=== PATIENT | female | born 1975 | race Caucasian/White ===

== ENCOUNTER 2017-05-01 14:52 | Emergency (ER) | payer BC, OTHER ==
--- NOTE | 2017-05-01 17:07 | ED Physician Documentation ---
PD HPI LOWER EXT INJURY - Stated complaint Stated Complaint: R FOOT INJ - Chief complaint Chief Complaint: Ext Problem - History obtained from History obtained from: Patient - History of Present Illness PD HPI LOW EXT INJURY LOCATION: Right, Foot Type of injury: Twist (she was doing yoga and had a forceful overflexion of the great toes, with her weight pushing onto it. She felt a sudden pain proximal to the great toe MTP. No obvious deformity.) Where injury occurred: Home Timing - onset: Today (just [employer]) Timing - details: Abrupt onset, Still present Worsened by: Moving, Palpating Associated symptoms: Weakness (she feels toe movement of great toe feels a bit weaker.). No: Numbness, Tingling, Discolored Contributing factors: No: Prior ortho surgery Review of Systems Skin: denies: Abrasion (s), Laceration (s) Musculoskeletal: reports: Extremity pain Neurologic: denies: Numbness PD PAST MEDICAL HISTORY - Past Medical History Cardiovascular: None Psych: None Musculoskeletal: None - Present Medications Home Medications: Ambulatory Orders Medication Instructions Recorded Confirmed No Known Home Medications [No 05/01/17 05/01/17 Known Home Medications] - Allergies Allergies/Adverse Reactions: Allergies Allergy/AdvReac Type Severity Reaction Status Date / Time No Known Drug Allergies Allergy Verified 05/01/17 15:07 PD ED PE NORMAL - Vitals Vital signs reviewed: Yes - General General: Alert and oriented X 3, No acute distress, Well developed/nourished - Derm Derm: Normal color, Warm and dry, No rash - Extremities Extremities: Other (right foot with local tenderness at end of first MT area. Not tender at MTP itself. She has flexion and ext of the toe but it hurts. Normal sensation to touch. ) - Neuro Neuro: No motor deficit, No sensory deficit Results - Vitals Vitals: Vital Signs - 24 hr 05/01/17 05/01/17 15:04 17:23 Temperature 37 C 36.7 C Heart Rate 64 72 Respiratory 15 16 Rate Blood Pressure 126/85 H 113/76 O2 Saturation 100 100 Oxygen O2 Source Room air - Rads (name of study) foot Radiology: Prelim report reviewed (no fractures) PD MEDICAL DECISION MAKING - ED course Complexity details: reviewed results (no fracture on foot xray), considered differential, d/w patient Departure - Departure Disposition: 01 Home, Self Care Clinical Impression: Toe sprain Qualifiers: Encounter type: initial encounter Qualified Code(s): S93.509A - Unspecified sprain of unspecified toe(s), initial encounter Condition: Stable Record reviewed to determine appropriate education?: Yes Instructions: ED Sprain Foot Comments: No fracture seen on x-ray. The sprain can still hurt for several days to week or more. Progressive activity as able. Ibuprofen 400-600 mg 3 times a day. Add Tylenol if needed for pains. Recheck if not better over a week or so. Discharge Date/Time: 05/01/17 18:08
--- NOTE | 2017-05-01 17:14 | XRAY Report ---
EXAM: RIGHT FOOT RADIOGRAPHY EXAM DATE: 05/01/2017 05:08 PM. CLINICAL HISTORY: Foot pain and swelling, rolled foot. COMPARISON: None. TECHNIQUE: 3 views. FINDINGS: Bones: No acute fracture or bony lesion. Plantar calcaneal spur. Joints: Normal. No subluxations. Soft Tissues: Soft tissue edema. No radiopaque foreign bodies. IMPRESSION: 1. No acute osseous abnormalities. [facility] Referring Provider Line: [phone] SITE ID: [id number]
[2017-05-01] MEDS ORDERED: IBUPROFEN 600 MG TABLET PO STA (17:22)
[2017-05-01 17:25] VITALS: BP 113/76
== END 2017-05-01 18:08 | disposition home or self-care (01) ==
LOC: ED 14:52
DX: S93.501A Unspecified sprain of right great toe, initial encounter (principal); X50.9XXA Other and unspecified overexertion or strenuous movements or postures, initial encounter; Y93.42 Activity, yoga
CPT/HCPCS: 73630; 99282; 99283; A9270

== ENCOUNTER 2017-08-22 12:45 | Outpatient (CLI) | payer OTHER | END 2017-08-22 12:46 | LOC: LAB.R 12:45 | PROVIDERS: ATTEND Midwife | DX: Z32.01 Encounter for pregnancy test, result positive (principal) | CPT/HCPCS: 84702 ==

== ENCOUNTER 2017-09-03 11:34 | Emergency (ER) | payer OTHER ==
[2017-09-03] MEDS ORDERED: BENZONATATE 100 MG CAPSULE PO STA (12:04)
[2017-09-03] MEDS ORDERED: ALBUTEROL NEB 2.5 MG/3 ML INH STA (12:04)
--- NOTE | 2017-09-03 12:14 | ED Physician Documentation ---
History of Present Illness - Stated complaint Stated Complaint: FEVER/COUGH/NECK PX - Chief complaint Chief Complaint: Fever - Additonal information Additional information: hx from pt healthy 42 y/o f denies preg fever body aches cough congestion head pressure for a week rest of family same but milder no travel Review of Systems Constitutional: reports: Fever, Myalgias, Fatigue. denies: Chills Respiratory: reports: Cough GI: denies: Abdominal Pain, Nausea, Vomiting, Diarrhea Endocrine: denies: Easy bruising / bleeding Immunocompromised: denies: Immunocompromised PD PAST MEDICAL HISTORY - Past Medical History Cardiovascular: None SITE INSPECTOR: Ectopic , Miscarriage(s) Psych: None Musculoskeletal: None - Past Surgical History Past Surgical History: Yes /SITE INSPECTOR: Other - Present Medications Home Medications: Ambulatory Orders Medication Instructions Recorded Confirmed Azithromycin [Zithromax] 250 mg PO DAILY #4 tablet 09/03/17 Benzonatate [Tessalon] 100 mg PO TID PRN #20 capsule 09/03/17 Oxymetazoline HCl [Afrin] 2 spray NS BID PRN #1 bottle 09/03/17 guaiFENesin/DEXTROMETHORPHAN 10 ml PO Q6H PRN #120 ml 09/03/17 [Robitussin Dm] - Allergies Allergies/Adverse Reactions: Allergies Allergy/AdvReac Type Severity Reaction Status Date / Time No Known Drug Allergies Allergy Verified 05/01/17 15:07 - Social History Does the pt smoke?: No Smoking Status: Never smoker Does the pt drink ETOH?: Yes Does the pt have substance abuse?: No PD ED PE NORMAL - Vitals Vital signs reviewed: Yes - HEENT HEENT: Moist mucous membranes, Other (nasal congestion, dull TMs). No: Pharynx benign (erythema 2/2 cough no swelling or exudate) - Neck Neck: Supple, no meningeal sign - Cardiac Cardiac: RRR - Respiratory Respiratory: Other (ronchi and dec and wheezing on the right) - Abdomen Abdomen: Soft, Non tender Results - Vitals Vitals: Vital Signs - 24 hr 09/03/17 09/03/17 11:42 12:15 Temperature 37.1 C Heart Rate 108 H 104 H Respiratory 18 18 Rate Blood Pressure 106/66 O2 Saturation 96 Oxygen O2 Source Room air - Rads (name of study) CXR Radiology: See rad report (LLL pna) PD MEDICAL DECISION MAKING - ED course ED course: no relief or change with neb so did not rx MDI - Sepsis Event Vital Signs: Vital Signs - 24 hr 09/03/17 09/03/17 11:42 12:15 Temperature 37.1 C Heart Rate 108 H 104 H Respiratory 18 18 Rate Blood Pressure 106/66 O2 Saturation 96 Oxygen O2 Source Room air Departure - Departure Disposition: 01 Home, Self Care Clinical Impression: Pneumonia Qualifiers: Pneumonia type: due to unspecified organism Laterality: left Lung location: lower lobe of lung Qualified Code(s): J18.1 - Lobar pneumonia, unspecified organism Condition: Good Instructions: ED Pneumonia Adult Prescriptions: Azithromycin [Zithromax] 250 mg PO DAILY #4 tablet Benzonatate [Tessalon] 100 mg PO TID PRN #20 capsule PRN Reason: to ease cough guaiFENesin/DEXTROMETHORPHAN [Robitussin Dm] 10 ml PO Q6H PRN #120 ml PRN Reason: Cough Oxymetazoline HCl [Afrin] 2 spray NS BID PRN #1 bottle PRN Reason: nasal sinus ear congestion
--- NOTE | 2017-09-03 13:17 | XRAY Report ---
Procedure Date: 09/03/2017 Accession Number: [id number] / [id number] Procedure: XR - Chest 2 View X-Ray CPT Code: 78958 FULL RESULT: EXAM: CHEST RADIOGRAPHY EXAM DATE: 09/03/2017 12:40 PM. CLINICAL HISTORY: Cough, right upper lobe rhonchi. COMPARISON: None. TECHNIQUE: 2 views. FINDINGS: Lungs/Pleura: No pleural effusion or pneumothorax. Bronchial wall thickening with slightly patchy and linear opacities within the left lower lobe. Mediastinum: Heart and mediastinal contours are unremarkable. Other: None. IMPRESSION: Bronchial wall thickening with patchy and linear opacities within the left lower lobe suspicious for bronchopneumonia. [facility]
[2017-09-03] MEDS ORDERED: AZITHROMYCIN 250 MG TABLET PO STA (13:45)
[2017-09-03 14:01] VITALS: BP 113/84
== END 2017-09-03 14:02 | disposition home or self-care (01) ==
LOC: ED 11:34
DX: J18.1 Lobar pneumonia, unspecified organism (principal)
CPT/HCPCS: 71046; 94640; 99283; A9270

== ENCOUNTER 2017-09-05 12:47 | Emergency (ER) | payer OTHER ==
[2017-09-05] MEDS ORDERED: IPRATROPIUM/ALBUTEROL 3 ML NEB INH STA (13:22)
[2017-09-05] MEDS ORDERED: DEXAMETHASONE 10 MG/ML VIAL PO STA (13:22)
--- NOTE | 2017-09-05 13:27 | ED Physician Documentation ---
PD HPI URI - Stated complaint Stated Complaint: SOA,COUGH,DIZZY - Chief complaint Chief Complaint: Resp - History obtained from History obtained from: Patient - History of Present Illness Timing - onset: How many days ago (3) Timing duration: Days (3) Timing details: Gradual onset Pain level max: 5 Pain level now: 4 Associated symptoms: Fever (states no fevers today), Nasal congestion, Rhinorrhea, Productive cough, Dyspnea (wheezing) Contributing factors: Sick contact Improves by: Rest, Medication (azithromycin) Worsened by: Activity, Breathing Similar symptoms before: Diagnosis (pneumonia) Recently seen: Emergency Dept (2 days ago for same) Review of Systems Constitutional: denies: Fever, Chills Ears: denies: Ear pain Nose: reports: Rhinorrhea / runny nose, Congestion Throat: denies: Sore throat Cardiac: denies: Chest pain / pressure Respiratory: reports: Cough GI: denies: Vomiting, Diarrhea Skin: denies: Rash Musculoskeletal: denies: Neck pain, Back pain PD PAST MEDICAL HISTORY - Past Medical History Cardiovascular: None LICENSED GUIDE: Ectopic , Miscarriage(s) Psych: None Musculoskeletal: None - Past Surgical History Past Surgical History: Yes /LICENSED GUIDE: Other - Present Medications Home Medications: Ambulatory Orders Medication Instructions Recorded Confirmed Azithromycin [Zithromax] 250 mg PO DAILY #4 tablet 09/03/17 Benzonatate [Tessalon] 100 mg PO TID PRN #20 capsule 09/03/17 Oxymetazoline HCl [Afrin] 2 spray NS BID PRN #1 bottle 09/03/17 guaiFENesin/DEXTROMETHORPHAN 10 ml PO Q6H PRN #120 ml 09/03/17 [Robitussin Dm] Albuterol Sulf [Ventolin Hfa 1 - 2 puffs INH Q4HR PRN #1 inhaler 09/05/17 Inhaler] Doxycycline Hyclate 100 mg PO BID #20 tablet 09/05/17 - Allergies Allergies/Adverse Reactions: Allergies Allergy/AdvReac Type Severity Reaction Status Date / Time No Known Drug Allergies Allergy Verified 05/01/17 15:07 - Social History Does the pt smoke?: No Smoking Status: Never smoker Does the pt drink ETOH?: Yes Does the pt have substance abuse?: No PD ED PE NORMAL - Vitals Vital signs reviewed: Yes - General General: Alert and oriented X 3, No acute distress - HEENT HEENT: Moist mucous membranes - Neck Neck: Supple, no meningeal sign - Cardiac Cardiac: RRR - Respiratory Respiratory: No respiratory distress, Other (wheezing and rhonchi B) - Abdomen Abdomen: Soft, Non tender, Non distended - Derm Derm: Warm and dry - Extremities Extremities: No edema - Neuro Neuro: Alert and oriented X 3 - Psych Psych: Normal mood, Normal affect Results - Vitals Vitals: Vital Signs - 24 hr 09/05/17 09/05/17 09/05/17 12:52 13:36 13:50 Temperature 37 C Heart Rate 104 H 108 H 100 Respiratory 18 15 20 Rate Blood Pressure 103/70 122/66 O2 Saturation 99 98 Oxygen O2 Source Room air PD MEDICAL DECISION MAKING - ED course Complexity details: reviewed results, re-evaluated patient, considered differential, d/w patient ED course: Patient is a 42-year-old female who was recently diagnosed with pneumonia. States increasing difficulty breathing over the past few days. Her fevers have dissipated. She was recently on azithromycin and thinks that she needs her antibiotics changed. She was given a nebulizer treatment and breathing improved. Also given dexamethasone. We will prescribe an albuterol inhaler for home and change her antibiotics to doxycycline. Patient counseled regarding signs and symptoms for which I believe and urgent re-evaluation would be necessary. Patient with good understanding of and agreement to plan and is comfortable going home at this time This document was made in part using voice recognition software. While efforts are made to proofread this document, sound alike and grammatical errors may occur. - Sepsis Event Vital Signs: Vital Signs - 24 hr 09/05/17 09/05/17 09/05/17 12:52 13:36 13:50 Temperature 37 C Heart Rate 104 H 108 H 100 Respiratory 18 15 20 Rate Blood Pressure 103/70 122/66 O2 Saturation 99 98 Oxygen O2 Source Room air Departure - Departure Disposition: Home, Self Care Clinical Impression: Pneumonia Qualifiers: Pneumonia type: due to unspecified organism Laterality: left Lung location: lower lobe of lung Qualified Code(s): J18.1 - Lobar pneumonia, unspecified organism Condition: Good Instructions: ED Pneumonia Adult Follow-Up: Provider,Other [Primary Care Provider] - Within 1 week Prescriptions: Albuterol Sulf [Ventolin Hfa Inhaler] 1 - 2 puffs INH Q4HR PRN #1 inhaler PRN Reason: Shortness Of Air/Wheezing Doxycycline Hyclate 100 mg PO BID #20 tablet Comments: Take all antibiotics until gone. Return if you worsen. Discharge Date/Time: 09/05/17 14:03
[2017-09-05] MEDS ORDERED: CHERRY SYRUP 10 ML UDC PO ONE (13:54)
[2017-09-05 14:00] VITALS: BP 122/66
== END 2017-09-05 14:03 | disposition home or self-care (01) ==
LOC: ED 12:47
DX: J18.1 Lobar pneumonia, unspecified organism (principal)
CPT/HCPCS: 94640; 99283; A9270

== ENCOUNTER 2017-09-07 11:22 | Emergency (ER) | payer OTHER ==
--- NOTE | 2017-09-07 12:45 | ED Physician Documentation ---
PD HPI URI - Stated complaint Stated Complaint: SOA - Chief complaint Chief Complaint: Resp - History obtained from History obtained from: Patient PD PAST MEDICAL HISTORY - Past Medical History Cardiovascular: None AUTOMOBILE SERVICE ADVISOR: Ectopic , Miscarriage(s) HEENT: Chronic sinusitis Psych: None Musculoskeletal: None - Past Surgical History Past Surgical History: Yes /AUTOMOBILE SERVICE ADVISOR: Other - Present Medications Home Medications: Ambulatory Orders Medication Instructions Recorded Confirmed Benzonatate [Tessalon] 100 mg PO TID PRN #20 capsule 09/03/17 Oxymetazoline HCl [Afrin] 2 spray NS BID PRN #1 bottle 09/03/17 Albuterol Sulf [Ventolin Hfa 1 - 2 puffs INH Q4HR PRN #1 inhaler 09/05/17 Inhaler] - Allergies Allergies/Adverse Reactions: Allergies Allergy/AdvReac Type Severity Reaction Status Date / Time No Known Drug Allergies Allergy Verified 05/01/17 15:07 - Social History Does the pt smoke?: No Smoking Status: Never smoker Does the pt drink ETOH?: Yes Does the pt have substance abuse?: No Results - Vitals Vitals: Vital Signs - 24 hr 09/07/17 11:26 Temperature 36.7 C Heart Rate 96 Respiratory 20 Rate Blood Pressure 95/64 O2 Saturation 100 Oxygen O2 Source Room air PD MEDICAL DECISION MAKING - Sepsis Event Vital Signs: Vital Signs - 24 hr 09/07/17 11:26 Temperature 36.7 C Heart Rate 96 Respiratory 20 Rate Blood Pressure 95/64 O2 Saturation 100 Oxygen O2 Source Room air
[2017-09-07] MEDS ORDERED: IPRATROPIUM/ALBUTEROL 3 ML NEB INH STA (12:56)
[2017-09-07] MEDS ORDERED: DEXAMETHASONE 10 MG/ML VIAL PO STA (12:56)
--- NOTE | 2017-09-07 13:51 | XRAY Report ---
Procedure Date: 09/07/2017 Accession Number: [id number] / [id number] Procedure: XR - Chest 2 View X-Ray CPT Code: 81669 FULL RESULT: EXAM: CHEST RADIOGRAPHY EXAM DATE: 09/07/2017 01:31 PM. CLINICAL HISTORY: Bibasilar rhonchi. COMPARISON: None. TECHNIQUE: 2 views. FINDINGS: Lungs/Pleura: No consolidative process or focal pneumonia. Negative for pleural effusion and pneumothorax. Lung volumes are symmetric. Mediastinum: Heart size is normal. The trachea is midline. Other: None. IMPRESSION: 1. No acute cardiopulmonary process. [facility]
[2017-09-07] MEDS ORDERED: LIDOCAINE 1% 2 ML VIAL SUBQ ONE (14:13)
[2017-09-07] MEDS ORDERED: cefTRIAXone 1 GM VIAL IM STA (14:13)
--- NOTE | 2017-09-07 14:15 | ED Physician Documentation ---
PD HPI URI - Stated complaint Stated Complaint: SOA - Chief complaint Chief Complaint: Resp - History obtained from History obtained from: Patient, Family - History of Present Illness Timing - onset: How many weeks ago (1) Timing duration: Weeks (1) Timing details: Gradual onset, Still present Associated symptoms: Fever, Chills, Sweats, Ear pain, Nasal congestion, Rhinorrhea, Productive cough, Dyspnea Improves by: Rest, Medication, MDI/nebulizer Worsened by: Activity Similar symptoms before: Diagnosis (pneumonia) Recently seen: Emergency Dept - Additional information Additional information: 42-year-old female has had a cough and congestion for the past week she has been diagnosed with pneumonia and treated with a course of azithromycin and she reports that she had some improvement initially with the dexamethasone given but was unable to sleep at night. She indicates that she continues to have some shortness of breath and cough and is worried that her antibiotic is not working. She was seen in the emergency department follow-up she again had some improvement with the single dose of dexamethasone given and now has persistence of cough and shortness of breath. She has some pain in her right ear as well. She was prescribed doxycycline in addition to the azithromycin and she did not end up taking this antibiotic. She is now here with concerns that her pneumonia is worse or not gone. She has had a prior incident where she had a sinus infection that took several rounds of antibiotics to clear a number of years ago. She has had experience with resistant infection. Review of Systems Constitutional: denies: Fever Eyes: denies: Decreased vision Ears: reports: Ear pain Nose: reports: Rhinorrhea / runny nose, Congestion Throat: denies: Sore throat Cardiac: denies: Chest pain / pressure, Palpitations Respiratory: reports: Dyspnea, Cough, Wheezing GI: denies: Abdominal Pain, Nausea, Vomiting : denies: Dysuria, Frequency PD PAST MEDICAL HISTORY - Past Medical History Cardiovascular: None SAMPLE MAKER: Ectopic , Miscarriage(s) HEENT: Chronic sinusitis Psych: None Musculoskeletal: None - Past Surgical History Past Surgical History: Yes /SAMPLE MAKER: Other - Present Medications Home Medications: Ambulatory Orders Medication Instructions Recorded Confirmed Benzonatate [Tessalon] 100 mg PO TID PRN #20 capsule 09/03/17 Oxymetazoline HCl [Afrin] 2 spray NS BID PRN #1 bottle 09/03/17 Albuterol Sulf [Ventolin Hfa 1 - 2 puffs INH Q4HR PRN #1 inhaler 09/05/17 Inhaler] Amox/Clav 875/125 [Augmentin] 1 each PO Q12H #20 tablet 09/07/17 predniSONE [Deltasone] 10 mg PO DAILY #26 tablet 09/07/17 - Allergies Allergies/Adverse Reactions: Allergies Allergy/AdvReac Type Severity Reaction Status Date / Time No Known Drug Allergies Allergy Verified 05/01/17 15:07 - Social History Does the pt smoke?: No Smoking Status: Never smoker Does the pt drink ETOH?: Yes Does the pt have substance abuse?: No PD ED PE NORMAL - Vitals Vital signs reviewed: Yes (tachypneic) - General General: Alert and oriented X 3, Well developed/nourished - HEENT HEENT: Atraumatic, PERRL, EOMI, Other (The right TM is inflammed with distortion of the umbo ) - Neck Neck: Supple, no meningeal sign, No bony TTP, Other (shoddy adneopathy bilaterally ) - Cardiac Cardiac: RRR, No murmur - Respiratory Respiratory: Other (tachypneic at rest with loud rhonchi and wheezing bibasilar. ) - Abdomen Abdomen: Soft, Non tender - Back Back: No CVA TTP, No spinal TTP - Derm Derm: Normal color, Warm and dry, No rash - Extremities Extremities: No deformity, No edema - Neuro Neuro: Alert and oriented X 3, No motor deficit, No sensory deficit, Normal speech Eye Opening: Spontaneous Motor: Obeys Commands Verbal: Oriented GCS Score: 15 - Psych Psych: Normal mood, Normal affect Results - Vitals Vitals: Vital Signs - 24 hr 09/07/17 09/07/17 09/07/17 11:26 13:02 13:04 Temperature 36.7 C Heart Rate 96 78 83 Respiratory 20 20 16 Rate Blood Pressure 95/64 117/85 H O2 Saturation 100 98 Oxygen O2 Source Room air - Rads (name of study) 2 veiw chest Radiology: Prelim report reviewed (Impression: No acute cardiopulmonary process. ), EMP read indepedently, See rad report PD MEDICAL DECISION MAKING - ED course Complexity details: reviewed old records, reviewed results, re-evaluated patient , considered differential, d/w patient, d/w family ED course: 42-year-old female with continued reactive airway disease after treatment of pneumonia with azithromycin is concerned about in incomplete treatment. She does have evidence of otitis in the right ear and this is despite improvement of the appearance of her chest x-ray. She is administered a second dose of dexamethasone 10 mg orally and we will place her on a course of prednisone as well as switch the antibiotic to Augmentin. She is given a DuoNeb treatment here in the emergency department with opening of the airway and and audible coarse rhonchi following that. She is given a spacer and teaching in the use of the inhaler. I suspect this patient's reactive airway disease is more the issue than the infection. - Sepsis Event Vital Signs: Vital Signs - 24 hr 09/07/17 09/07/17 09/07/17 11:26 13:02 13:04 Temperature 36.7 C Heart Rate 96 78 83 Respiratory 20 20 16 Rate Blood Pressure 95/64 117/85 H O2 Saturation 100 98 Oxygen O2 Source Room air Departure - Departure Disposition: 01 Home, Self Care Clinical Impression: Asthma Qualifiers: Asthma severity: mild Asthma persistence: intermittent Asthma complication type : with acute exacerbation Qualified Code(s): J45.21 - Mild intermittent asthma with (acute) exacerbation Otitis media Qualifiers: Otitis media type: suppurative Chronicity: acute Laterality: right Recurrence: not specified as recurrent Spontaneous tympanic membrane rupture: without spontaneous rupture Qualified Code(s): H66.001 - Acute suppurative otitis media without spontaneous rupture of ear drum, right ear Condition: Stable Instructions: ED Reactive Airway Disease, ED Otitis Media Acute Adult Follow-Up: Pooja Holder ND [Primary Care Provider] - Prescriptions: Amox/Clav 875/125 [Augmentin] 1 each PO Q12H #20 tablet predniSONE [Deltasone] 10 mg PO DAILY #26 tablet Forms: Activity restrictions
[2017-09-07 15:05] VITALS: BP 104/69
== END 2017-09-07 15:05 | disposition home or self-care (01) ==
LOC: ED 11:22
DX: J45.21 Mild intermittent asthma with (acute) exacerbation (principal); H66.001 Acute suppurative otitis media without spontaneous rupture of ear drum, right ear
CPT/HCPCS: 71046; 94640; 94664; 96372; 99283

== ENCOUNTER 2018-03-03 12:49 | Day surgery (SDC) | payer OTHER ==
[2018-03-03 13:25] LABS: HCG UR QUAL NEGATIVE
--- NOTE | 2018-03-03 13:29 | ANESTHESIA ---
Pre-Anesthesia VS, & Labs - Diagnosis Umbilical Hernia - Procedure Umbilical hernia repair with mesh Vital Signs: Temp Pulse Resp BP Pulse Ox 37.2 C 76 18 109/83 H 100 03/03/18 13:12 03/03/18 13:12 03/03/18 13:12 03/03/18 13:12 03/03/18 13:12 Height 5 ft 9.5 in Weight (kg) 68 kg Body Mass Index 21.4 - NPO >8 hours - Is Patient ?: No Home Medications and Allergies No Known Home Medications 02/28/18 Allergies/Adverse Reactions: Allergies Allergy/AdvReac Type Severity Reaction Status Date / Time No Known Drug Allergies Allergy Verified 02/28/18 08:50 Anes History & Medical History - Anesthetic History Anesthesia Complications: reports: No previous complications - Medical History Cardiovascular: reports: None Pulmonary: reports: Pneumonia (History of in summer 2017) Gastrointestinal: reports: None, Other Urinary: reports: None Neuro: reports: None Musculoskeletal: reports: None Endocrine/Autoimmune: reports: None Blood Disorders: reports: None Skin: reports: None Smoking Status: Never smoker Psychosocial: reports: Alcohol (2-3 glasses of wine 3x/week) - Surgical History Gynecologic: Other (History of ectopic ) Exam General: Alert, Oriented x3, Cooperative, No acute distress Dental: WNL Mouth Openin Fingerbreadth Neck Mobility: Normal Mallampati classification: I Thyromental Distance: greater than 6 cm Respiratory: Lungs clear, Normal breath sounds, No respiratory distress, No accessory muscle use Cardiovascular: Regular rate, Normal S1, Normal S2, No murmurs Mental/Cognitive Status: Alert/Oriented X3, Normal for patient Plan Anesthesia Type: General Consent for Procedure(s) Verified and Reviewed: Yes Code Status: Attempt Resuscitation ASA classification: 1-Healthy patient Is this case an emergency?: No
[2018-03-03] MEDS ORDERED: BUPIVACAINE 0.5% PF 30 ML VIAL ONE (13:36)
[2018-03-03] MEDS ORDERED: LACTATED RINGERS 1,000 ML IV ONE ×2 (13:38→14:30)
[2018-03-03] MEDS ORDERED: DEXAMETHASONE 4 MG/ML VIAL IVP ONE (14:07)
[2018-03-03] MEDS ORDERED: ceFAZolin 1 GM VIAL IV ONE (14:07)
[2018-03-03] MEDS ORDERED: ONDANSETRON 4 MG/2 ML VIAL IVP ONE (14:07)
[2018-03-03] MEDS ORDERED: MIDAZOLAM 2 MG/2 ML VIAL IVP ONE (14:07)
[2018-03-03] MEDS ORDERED: PROPOFOL 200 MG/20 ML VIAL IVP ONE (14:07)
[2018-03-03] MEDS ORDERED: BUPIVACAINE 0.5% PF 30 ML VIAL INFIL ONE ×2 (14:07)
[2018-03-03] MEDS ORDERED: fentaNYL 100 MCG/2 ML VIAL IVP ONE (14:07)
[2018-03-03] MEDS: fentaNYL 100 MCG/2 ML VIAL ONE ×2 (14:51→15:01)
--- NOTE | 2018-03-03 15:06 | OPERATIVE REPORT ---
Operative Report - General Procedure Date: 03/03/18 Planned Procedure: open umbilical hernia repair Pre-Op Diagnosis: umbilical hernia Procedure Performed: same Post Op Diagnosis: same - Procedure Note Primary Surgeon: tristan Anesthesia Technique: General ET tube IV Fluids (mL): 1,000 Estimated Blood Loss (mL): 5 Complications: none
[2018-03-03] MEDS: HYDROmorphone 0.5 MG/0.5 ML SYRINGE ONE ×2 (15:08→15:19)
--- NOTE | 2018-03-03 15:19 | OPERATIVE REPORT ---
DATE OF SERVICE: 03/03/2018 Physician: Fernando Knapp MD PREOPERATIVE DIAGNOSIS: Umbilical hernia. POSTOPERATIVE DIAGNOSIS: Umbilical hernia. PROCEDURE PERFORMED: Open repair of umbilical hernia with mesh. INDICATIONS FOR PROCEDURE: The patient is a 43-year-old woman, who has had an umbilical hernia for some time. She had an episode of incarceration a few days ago and decided to get it repaired after that. PROCEDURE IN DETAIL: The risks and benefits were explained to the patient. She agreed to the procedure. She was taken to the operating room and placed under general anesthesia and intubated. The abdomen was prepped and draped. A timeout was performed and everyone agreed to the procedure. We begun by incising the skin over the belly button for a distance of about 2 to 3 cm. It was carried down to the fascia. Fascial defect of about 1 cm was identified. The ring of the hernia defect was cleared off. The defect was opened for another about 0.5 cm. A finger was used to probe inside the defect, and no adhesions were felt. The hernia patch was inserted, small size, into the defect and secured in place using Prolene to the fascia. The fascia was then closed over the mesh using 2-0 Prolene again. Subcutaneous tissue was closed in 2 layers using Vicryl and Monocryl subcuticular, and then a dressing of gauze and Tegaderm was applied over the top. 8 mL of local anesthetic was infused in the incision prior to closure. This terminated the procedure. The patient tolerated the procedure well. There were no complications. ESTIMATED BLOOD LOSS: 5 mL SPECIMEN: None. Plan is to have her go home today and followup in clinic. TD: 03/03/2018 14:50 DELONTE
[2018-03-03] MEDS ORDERED: HYDROmorphone 0.5 MG/0.5 ML SYRINGE ONE (15:21)
[2018-03-03] MEDS ORDERED: HYDROcod/ACETAM 5/325 MG TABLET PO PRN (15:31)
[2018-03-03 16:11] VITALS: BP 127/63
== END 2018-03-03 12:50 | disposition home or self-care (01) ==
LOC: SDS 12:49
PROVIDERS: ATTEND Surgery
PROC: 0WUF0JZ Supplement Abdominal Wall with Synthetic Substitute, Open Approach (ICD-10-PCS; principal; 2018-03-03 14:00)
DX: K42.9 Umbilical hernia without obstruction or gangrene (principal)
CPT/HCPCS: 49585; 81025; A9270; C1781; J1170; J7120

== ENCOUNTER 2018-09-04 17:15 | Outpatient (CLI) | payer OTHER ==
--- NOTE | 2018-09-05 09:21 | Ultrasound Report ---
Reason: PERIUMBILICAL PAIN Procedure Date: 09/04/2018 Accession Number: [id number] / [id number] Procedure: US - Abdomen Limited CPT Code: FULL RESULT: EXAM: ABDOMEN ULTRASOUND LIMITED EXAM DATE: 09/04/2018 06:31 PM. CLINICAL HISTORY: PERIUMBILICAL PAIN STATUS post hernia repair February 2018. COMPARISON: None. TECHNIQUE: Real-time scanning was performed with static images obtained. FINDINGS: The periumbilical area scanned. No evidence of cystic or solid mass, abnormal fluid collection, or recurrent hernia is seen. IMPRESSION: Negative periumbilical ultrasound. RADIA
== END 2018-09-04 17:16 | disposition home or self-care (01) ==
LOC: DI 17:15
PROVIDERS: ATTEND Naturopath
DX: R10.33 Periumbilical pain (principal); Z87.19 Personal history of other diseases of the digestive system; Z98.890 Other specified postprocedural states
CPT/HCPCS: 76705

== ENCOUNTER 2019-05-16 20:33 | Emergency (ER) | payer OTHER ==
[2019-05-16 21:20] LABS: RAPID STREP SCREEN Negative (Negative)
--- NOTE | 2019-05-16 21:22 | ED Physician Documentation ---
History of Present Illness - Stated complaint Stated Complaint: SORE THROAT/CHILLS - Chief complaint Chief Complaint: Heent - History obtained from History obtained from: Patient (The patient is a otherwise very healthy 44-year-old female who reports that she thinks she has been exposed to someone who is the Covid 19 virus and called the department of health and was told to come to the emergency department for testing.She reports some mild symptoms to include sore throat mild cough, denies headache, neck pain, rashes she does report a subjective fever she took an antipyretic prior to arrival.) Review of Systems Constitutional: reports: Fever, Chills Eyes: reports: Reviewed and negative Ears: reports: Reviewed and negative Nose: reports: Reviewed and negative Throat: reports: Sore throat Cardiac: reports: Reviewed and negative Respiratory: reports: Cough GI: reports: Reviewed and negative : reports: Reviewed and negative Skin: reports: Reviewed and negative Musculoskeletal: reports: Reviewed and negative Neurologic: reports: Reviewed and negative Psychiatric: reports: Reviewed and negative Endocrine: reports: Reviewed and negative Immunocompromised: reports: Reviewed and negative PD PAST MEDICAL HISTORY - Past Medical History Past Medical History: Yes Cardiovascular: None Respiratory: Pneumonia Neuro: None Endocrine/Autoimmune: None GI: Other CAR HOSTLER: Ectopic , Miscarriage(s) : None HEENT: None Psych: None Musculoskeletal: None Derm: None Other Past Medical History: UMBILICAL HERNIA....ECTOPIC .... - Past Surgical History Past Surgical History: Yes /CAR HOSTLER: Other - Present Medications Home Medications: Ambulatory Orders Medication Instructions Recorded Confirmed No Known Home Medications 02/28/18 03/02/18 - Allergies Allergies/Adverse Reactions: Allergies Allergy/AdvReac Type Severity Reaction Status Date / Time No Known Drug Allergies Allergy Verified 05/16/19 20:57 - Social History Does the pt smoke?: No Smoking Status: Never smoker Does the pt drink ETOH?: Yes Does the pt have substance abuse?: No - Immunizations Immunizations are current?: No - POLST Patient has POLST: No PD ED PE NORMAL - Vitals Vital signs reviewed: Yes - General General: Alert and oriented X 3, No acute distress, Well developed/nourished - HEENT HEENT: Atraumatic, PERRL, EOMI, Ears normal, Moist mucous membranes, Pharynx benign, Dentition benign - Neck Neck: Supple, no meningeal sign, No bony TTP, No adenopathy, No JVD, No bruit - Cardiac Cardiac: RRR, No murmur, No rub, Strong equal pulses - Respiratory Respiratory: No respiratory distress, Clear bilaterally - Abdomen Abdomen: Normal bowel sounds, Soft, Non tender, Non distended, No organomegaly - Derm Derm: Normal color, Warm and dry, No rash - Extremities Extremities: No deformity, No tenderness to palpate, Normal ROM s pain, No edema, No calf tenderness / cord - Neuro Neuro: Alert and oriented X 3, 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 will send [employer]/OP swabs to [facility] for testing as well as strep and flu.) Departure - Departure Disposition: 01 Home, Self Care Clinical Impression: Viral syndrome Condition: Good Instructions: ED Viral Syndrome Follow-Up: Pooja Holder ND [Primary Care Provider] - Tomorrow
[2019-05-16 22:26] VITALS: BP 120/79
== END 2019-05-16 22:31 | disposition home or self-care (01) ==
LOC: ED 20:33
DX: B34.9 Viral infection, unspecified (principal); Z20.828 Contact with and (suspected) exposure to other viral communicable diseases
CPT/HCPCS: 81599; 87070; 87275; 87276; 87430; 99282; 99283

== ENCOUNTER 2023-03-02 12:41 | Emergency (ER) | payer SELFPAY | END 2023-03-02 13:12 | disposition left against medical advice (07) | LOC: ED 12:41 | DX: Z53.21 Procedure and treatment not carried out due to patient leaving prior to being seen by health care provider (principal) ==

== ENCOUNTER 2023-04-22 13:52 | Outpatient (CLI) | payer OTHER ==
--- NOTE | 2023-04-22 14:58 | XRAY Report ---
PROCEDURE: Shoulder 2+V LT INDICATIONS: LEFT SHOULDER PAIN TECHNIQUE: 3 views of the shoulder were acquired. COMPARISON: None. FINDINGS: Bones: No fractures or dislocations. No suspicious bony lesions. Visualized ribs appear intact. Soft tissues: No suspicious soft tissue calcifications. The visualized lungs are within normal limi ts. IMPRESSION: No acute bony abnormality. If pain persists with conservative management, consider repeat x-ray in 10 -14 days or cross-sectional imaging. Reviewed by: Fran Nazario MD on 04/22/2023 2:57 PM PST Approved by: Fran Nazario MD on 04/22/2023 2:57 PM PST Station ID: [id number]
== END 2023-04-22 13:53 | disposition home or self-care (01) ==
LOC: DI 13:52
PROVIDERS: ATTEND Naturopath
DX: M25.512 Pain in left shoulder (principal)